=== PATIENT | female | born 1980 | race Two or more races ===

== ENCOUNTER 2020-05-03 05:49 | Day surgery (SDC) | payer OTHER ==
[~2020-05-03 05:49] MED LIST: SYNTHROID50 MCG
[2020-05-03] MEDS ORDERED: RECTICARE30 GM TOP (08:28)
[2020-05-03] MEDS ORDERED: PERCOCET 5-3251 EACH PO (08:28)
== END 2020-05-03 12:15 | disposition home or self-care (01) ==
LOC: CIR.AMB 05:49
PROVIDERS: ATTEND Surgery
DX: K60.3 Anal fistula (principal)